=== PATIENT | male | born 1935 | race Caucasian/White ===

== ENCOUNTER → 2017-05-22 | Outpatient (CLI) | payer SELFPAY ==
[2017-05-22 13:13] LABS: INR 2.68 (0.85-1.15); PROTHROMBIN TIME 27.6 SEC (9.6-11.6)
== END | disposition home or self-care (01) ==
LOC: LAB 12:15
PROVIDERS: ATTEND Internal Medicine Clinical Cardiac Electrophysiology
DX: I48.0 Paroxysmal atrial fibrillation (principal); Z79.01 Long term (current) use of anticoagulants
CPT/HCPCS: 36415; 85610